=== PATIENT | male | born 1970 | race Two or more races ===

== ENCOUNTER 2022-06-25 08:03 | Emergency (ER) | payer OTHER ==
[~2022-06-25] VITALS: Ht 167.6 cm; Wt 117.9 kg
[2022-06-25] MEDS ORDERED: CEFADROXIL500 MG PO (10:08)
== END 2022-06-25 10:16 | disposition home or self-care (01) ==
LOC: ER 08:03
DX: S61.217A Laceration without foreign body of left little finger without damage to nail, initial encounter (principal); W45.8XXA Other foreign body or object entering through skin, initial encounter; Y93.89 Activity, other specified; Y92.012 Bathroom of single-family (private) house as the place of occurrence of the external cause; Y99.9 Unspecified external cause status